=== PATIENT | female | born 1945 | race Caucasian/White ===

== ENCOUNTER → 2018-05-06 | Outpatient (CLI) | payer MEDICARE ==
[~2018-05-06] MED LIST: SINCALIDE 3 MCG/VIAL INJ ONE
--- NOTE | 2018-05-06 09:40 | Diagnostic Imaging Report ---
PROCEDURE:ABDOMINAL ULTRASOUND COMPARISON:None. INDICATIONS:RUQ Pain TECHNIQUE: Jin scale color Doppler ultrasound abdomen FINDINGS: Imaged portions of the inferior vena cava and abdominal aorta are of normal caliber. Scattered aortic atherosclerosis. Normal pancreatic head and proximal body. The distal tail is obscured by bowel gas. Right liver span 14.2 cm. Slightly heterogeneous echotexture with a smooth intimal margin. Portal vein diameter 1.1 cm; normal flow direction. Normal gallbladder. Wall thickness 0.2 cm. Common bile duct diameter 0.3 cm. Right kidney length: 10.1 cm Left kidney length: 10.1 cm both kidneys demonstrate increased parenchymal echogenicity. 2 simple appearing cysts on the right measuring 1.4 x 1.5 x 1.1 cm and 1.1 x 0.8 x 0.9 cm. 2.5 x 1.7 x 2.1 cm anechoic cyst on the left. Splenic length 7.9 cm. No ascites. CONCLUSION: 1. Normal gallbladder. 2. Heterogeneous liver echotexture. Primary differential considerations include geographic fatty infiltration and nonspecific hepatitis. 3. Simple renal cysts. Dictated by: Vin Will M.D. on 05/06/2018 at 9:43 Electronically approved by: Vin Will M.D. on 05/06/2018 at 9:43
--- NOTE | 2018-05-06 12:56 | Diagnostic Imaging Report ---
Hepatobiliary Scan with Gallbladder Ejection Fraction Clinical information: Right upper quadrant pain. Comparison: Abdominal ultrasound dated 05/06/2018 Technique: Following intravenous administration of 6.8 millicuries of Tc-99m mebrofenin, dynamic images of the abdomen in the anterior projection were obtained through 40 minutes. Sincalide (CCK analog) 1.4 micrograms was administered intravenously over 30 minutes with additional imaging for determination of gallbladder ejection fraction. Discussion: Perfusion of the liver is normal. Extraction of tracer by the liver parenchyma is normal. Tracer appears promptly within the biliary tract. The gallbladder begins to fill by 16 minutes post injection of tracer and fills adequately. Tracer is seen in the small bowel after 40 minutes. The gallbladder ejection fraction with sincalide is 26% (normal greater than 40%). Impression: 1. Filling of the gallbladder excludes acute cystic duct obstruction/acute cholecystitis. 2. The decreased gallbladder ejection fraction of 26% supports the clinical diagnosis of chronic cholecystitis/gallbladder dyskinesia. Signed by: Dr. Cade Groves MD on 05/06/2018 12:52 PM
== END ==
LOC: US 07:49
PROVIDERS: ATTEND Internal Medicine Gastroenterology
DX: R10.11 Right upper quadrant pain (principal)
CPT/HCPCS: 76700; 78227; A9537; J2805

== ENCOUNTER → 2018-07-17 | Day surgery (SDC) | payer MEDICARE ==
[2018-07-15 11:41] LABS: BASOPHILS # (AUTO) 0.1 (0.0-0.1); BASOPHILS % 0.9 % (0.0-1.0); EOSINOPHILS # (AUTO) 0.1 (0.0-0.4); EOSINOPHILS % 1.2 % (0.0-6.0); HEMATOCRIT 41.7 % (34.2-44.1); HEMOGLOBIN 13.5 g/dL (12.0-16.0); LYMPHOCYTES # (AUTO) 2.3 (1.0-3.2); LYMPHOCYTES % 29.5 % (18.0-39.1); MEAN CORPUSCULAR HEMOGLOBIN 29.7 pg (28-32); MEAN CORPUSCULAR HGB CONC 32.4 g/dL (31-35); MEAN CORPUSCULAR VOLUME 91.6 fL (81-99); MONOCYTES # (AUTO) 0.7 (0.2-0.8); NEUTROPHILS # (AUTO) 4.5 (2.1-6.9); NEUTROPHILS % 59.3 % (38.7-80.0); PLATELET COUNT 370 x10e3/uL (140-360); RED BLOOD COUNT 4.55 x10e6/uL (3.6-5.1); RED CELL DISTRIBUTION WIDTH 15.7 % (11.7-14.4)
[2018-07-15 12:02] LABS: ALBUMIN 3.8 g/dL (3.5-5.0)
--- NOTE | 2018-07-15 12:41 | Diagnostic Imaging Report ---
PROCEDURE: Frontal and lateral views of the chest. COMPARISON: None. INDICATIONS: PREOPERATIVE CHEST XRAY FOR GALLBLADDER SURGERY FINDINGS: Lines/tubes: None. Lungs: The lungs are well inflated and clear. There is no evidence of pneumonia or pulmonary edema. Pleura: There is no pleural effusion or pneumothorax. Heart and mediastinum: Normal heart size. Tortuous, atherosclerotic thoracic aorta. Bones: No acute bony abnormality. IMPRESSION: 1. No acute cardiopulmonary disease. Dictated by: Mir Hicks M.D. on 07/15/2018 at 12:47 Electronically approved by: Mir Hicks M.D. on 07/15/2018 at 12:47
[~2018-07-17] MED LIST changes: +ACETAMINOPHEN 1000 MG/100 ML 100 ML IV ONE; +ASPIRIN81 MG PO; +BUPIVACAINE HCL 0.5% INJ 30 ML VIAL INJ ONE; +CLOPIDOGREL75 MG PO; +COQ-10100 MG PO; +ESMOLOL HCL 100MG/10ML 10 MG/ML VIAL ONE; +FENTANYL CITRATE/PF 100MCG/2 ML INJ ONE; +GLYCOPYRROLATE INJ 1MG/ 5 ML SYR ONE; +ISOSORBIDE MONO20 MG PO; +LEVOFLOXACIN 500MG/D5W 100ML 100 ML IV ONE; +LEVOTHYROXINE50 MCG PO; +LIDOCAINE HCL 2% LOCAL INJ 5 ML SDV VIAL INJ ONE; +LOSARTAN POTAS100 MG PO; +NEOSTIGMINE 5 MG/5ML SYR ONE; +ONDANSETRON HCL INJ 2 MG/ML VIAL ONE; +PANTOPRAZOLE SO40 MG PO; +PROPOFOL IV EMULSION 10 MG/ML 20 ML VIAL ONE; +REPATHA PO; +ROCURONIUM BROMIDE 10 MG/ML 5ML VIAL ONE; +SEVOFLURANE INHAL SOLN 250 ML PEN BTL ONE; -SINCALIDE 3 MCG/VIAL INJ ONE; +SUGAMMADEX SODIUM 200 MG/2 ML VIAL IV ONE; +VITAMIN B-121000 MCG PO; +VITAMIN C500 M2 PO
--- NOTE | 2018-07-17 08:01 | Operative Report ---
DATE OF PROCEDURE: July 17, 2018 PREOPERATIVE DIAGNOSIS: Chronic cholecystitis. POSTOPERATIVE DIAGNOSIS: Chronic cholecystitis. PROCEDURE PERFORMED: Diagnostic laparoscopy, laparoscopic cholecystectomy. VENDOR REPRESENTATIVES: None. ANESTHESIA: General endotracheal. INDICATIONS AND FINDINGS: The patient is a 73-year-old female who has had complaints of epigastric and abdominal pain. Workup revealed abnormal HIDA scan with low ejection fraction. At surgery, the patient was found to have a gallbladder that was mildly distended with changes of cholesterolosis. Liver appeared normal. There were adhesions in the midline involving omentum and stomach. The remainder of the laparoscopy was unremarkable. TECHNIQUE: After adequate general endotracheal anesthesia, with the patient in the supine position, the abdomen was prepped and draped in sterile fashion with ChloraPrep solution. To the right of the umbilicus, the skin and subcutaneous tissue were infiltrated with 0.5% Marcaine. Incision was made. Abdominal wall was elevated, and a Veress needle was introduced. Pneumoperitoneum was then created. A 10-mm trocar and cannula were then passed through the periumbilical wound. Laparoscopic camera was introduced. Initial laparoscopy revealed the liver to be somewhat enlarged. There were adhesions in the midline involving omentum and stomach. Gallbladder was somewhat distended. A 10-mm trocar and cannula were placed in epigastrium, and two 5-mm trocars and cannulas were placed in the right upper quadrant. These were placed under direct vision. Fundus of the gallbladder was grasped and retracted superiorly. There were adhesions over the neck and fundus of the gallbladder involving omentum. These were lysed, staying close to the gallbladder. The neck of the gallbladder was grasped and retracted laterally. Peritoneum over the neck of the gallbladder was incised. The gallbladder-cystic duct junction was dissected free. Cystic artery was also dissected free. The neck of the gallbladder was completely dissected free. Cystic artery was divided between Hemoclips close to the gallbladder. The cystic duct was also divided between Hemoclips, with 3 clips being left on the common bile duct side. The gallbladder was dissected free from the liver using scissors and electrocautery. Once it was entirely free, it was placed into an Endo pouch and brought out through the epigastric cannula. There were no stones palpable. Gallbladder bed was inspected for hemostasis, which was seen to be adequate. It was irrigated with saline. All fluid aspirated and inspected for hemostasis, which was seen to be adequate. Instruments and cannulas were then removed. Pneumoperitoneum was evacuated. Wounds were then closed. Fascia in the umbilical and epigastric wound was closed with #0 Vicryl. Skin to all wounds closed with francie. Sterile dressing was applied. Patient tolerated the procedure well. Estimated blood loss was 10 mL. There were no complications. All counts were correct. Patient was taken to the recovery room in satisfactory condition. Job#: [id number]
== END | disposition home or self-care (01) ==
LOC: OR 05:03
PROVIDERS: ATTEND Surgery
DX: K81.1 Chronic cholecystitis (principal); K82.8 Other specified diseases of gallbladder; K21.9 Gastro-esophageal reflux disease without esophagitis; K58.9 Irritable bowel syndrome, unspecified; K44.9 Diaphragmatic hernia without obstruction or gangrene; I10 Essential (primary) hypertension; I25.10 Atherosclerotic heart disease of native coronary artery without angina pectoris; I25.2 Old myocardial infarction; E78.5 Hyperlipidemia, unspecified; F17.210 Nicotine dependence, cigarettes, uncomplicated; Z88.6 Allergy status to analgesic agent; Z88.0 Allergy status to penicillin; Z91.013 Allergy to seafood; Z01.810 Encounter for preprocedural cardiovascular examination; Z01.812 Encounter for preprocedural laboratory examination; Z01.818 Encounter for other preprocedural examination; Z79.02 Long term (current) use of antithrombotics/antiplatelets; Z79.82 Long term (current) use of aspirin
CPT/HCPCS: 36415 ×2; 47562; 71046; 80053; 84132; 85025; 88304; 93005; J1956; J2001; J2405; J3490